=== PATIENT | male | born 1985 | race Caucasian/White ===

== ENCOUNTER 2017-02-03 10:54 | Emergency (ER) | payer OTHER ==
[~2017-02-03] VITALS: Ht 185.4 cm; Wt 100.0 kg
[~2017-02-03 10:54] MED LIST: BACTRIM DS1 TAB OR; CELEXA20 MG PO; DARVOCET N-100100 - OR; DOCUSATE CAL240 MG PO; FLEXERIL OR; LORTAB 10-325 M1 TAB PO; LORTAB 5 OR; NAPROSYN500 MG PO; PERCOCET 10/31 COMBO PO; ROBAXIN-750750 MG PO; [UNRECOGNIZED DRUG - OTHER]
[2017-02-03 11:42] LABS: HEMATOCRIT 42.4 % (39.0-50.0); HEMOGLOBIN 14.9 g/dl (14.0-18.0); IMMATURE GRANULOCYTES 0.2 % (0.0-1.0); MEAN CELL VOLUME 88.1 fL CALC (80.0-100.0); MEAN CORPUSCULAR HGB CONC 35.1 g/L CALC (32.0-36.0); NEUT# 4.8 thou/uL (1.82-7.42); RED BLOOD COUNT 4.81 mill/uL (4.70-6.10); RED CELL DISTRI WIDTH 12.1 % (11.5-15.5)
[2017-02-03 12:21] LABS: ALBUMIN 4.6 g/dL (3.2-5.0); ALKALINE PHOSPHATASE 79 u/l (38-126); ANION GAP 15 (6-22 (CALC)); BILIRUBIN, TOTAL 1.2 mg/dL (0.0-1.4); BUN 19 mg/dL (9-20); BUN/CREATININE RATIO 20 (12-20 (CALC)); CALCIUM 9.5 mg/dL (8.4-10.2); CARBON DIOXIDE 27 mmol/l (22-30); CHLORIDE 108 mmol/l (95-108); CREATININE 0.9 mg/dL (0.7-1.3); GFR > 60 ML/MIN (>=60 (CALC)); GFR FOR AFR.AMER. > 60 ML/MIN (>=60 (CALC)); GLUCOSE 99 mg/dL (75-110); POTASSIUM 4.6 mmol/l (3.5-5.1); SGOT/AST 14 u/l (17-59); SGPT/ALT 22 u/l (21-72); SODIUM 145 mmol/l (137-146); TOTAL PROTEIN 7.4 g/dL (6.3-8.2)
[2017-02-03] MEDS ORDERED: MOTRIN800 MG PO (13:36)
[2017-02-03 13:41] VITALS: BP 128/89
== END 2017-02-03 13:50 | disposition home or self-care (01) | DRG 914 ==
LOC: ED 10:54
PROVIDERS: Emergency Medicine
DX: S29.9XXA Unspecified injury of thorax, initial encounter (principal); S39.91XA Unspecified injury of abdomen, initial encounter; V49.59XA Passenger injured in collision with other motor vehicles in traffic accident, initial encounter; Y92.414 Local residential or business street as the place of occurrence of the external cause
CPT/HCPCS: Q9967

== ENCOUNTER 2017-11-08 04:27 | Emergency (ER) | payer SELFPAY ==
[~2017-11-08] VITALS: Ht 185.4 cm; Wt 82.0 kg
[~2017-11-08 04:27] MED LIST changes: +MOTRIN800 MG PO
[2017-11-08 04:32] VITALS: BP 136/91
[2017-11-08 05:15] LABS: IMMATURE GRANULOCYTES 0.3 % (0.0-5.0); MEAN CELL VOLUME 88.2 fL CALC (80.0-100.0); MEAN CORPUSCULAR HGB 31.4 pG CALC (26.0-32.0); MEAN CORPUSCULAR HGB CONC 35.6 g/L CALC (32.0-36.0); NEUT# 5.32 thou/uL (1.82-7.42); RED BLOOD COUNT 4.08 mill/uL (4.70-6.10); RED CELL DISTRI WIDTH 12.7 % (11.5-15.5)
[2017-11-08 05:17] LABS: URINE BILIRUBIN - DIPSTICK NEGATIVE (NEGATIVE); URINE BLOOD DIPSTICK NEGATIVE (NEGATIVE); URINE COLOR YELLOW; URINE GLUCOSE - DIPSTICK NEGATIVE (NEGATIVE); URINE KETONE NEGATIVE (NEGATIVE); URINE LEUK ESTERASE NEGATIVE (NEGATIVE); URINE NITRITE - DIPSTICK NEGATIVE (Negative); URINE PH 6.5 (4.5-8.0); URINE PROTEIN - DIPSTICK NEGATIVE (NEG-TRACE)
[2017-11-08 05:21] LABS: HEMOGLOBIN 12.8 g/dl (14.0-18.0)
[2017-11-08 05:22] LABS: BARBITURATES NEGATIVE (NEGATIVE); COCAINE NEGATIVE (NEGATIVE); METHADONE NEGATIVE (NEGATIVE); OXCYCODONE NEGATIVE (NEGATIVE); TETRAHYDROCANNABIONOL NEGATIVE (NEGATIVE); TRICYLIC ANTIDEPRESSANTS NEGATIVE (NEGATIVE)
[2017-11-08 05:23] LABS: URINE CLARITY CLEAR
[2017-11-08 05:33] LABS: ALBUMIN 3.7 g/dL (3.2-5.0); ALKALINE PHOSPHATASE 83 u/l (38-126); ANION GAP 13 (6-22 (CALC)); BILIRUBIN, TOTAL 1.1 mg/dL (0.0-1.4); BUN 24 mg/dL (9-20); BUN/CREATININE RATIO 26 (12-20 (CALC)); CARBON DIOXIDE 26 mmol/l (22-30); CHLORIDE 104 mmol/l (95-108); CREATININE 0.9 mg/dL (0.7-1.3); GFR > 60 ML/MIN (>=60 (CALC)); GFR FOR AFR.AMER. > 60 ML/MIN (>=60 (CALC)); POTASSIUM 3.9 mmol/l (3.5-5.1); SGPT/ALT 143 u/l (21-72); SODIUM 139 mmol/l (137-146); TOTAL PROTEIN 6.6 g/dL (6.3-8.2)
[2017-11-08 05:41] LABS: SGOT/AST 76 u/l (17-59)
== END 2017-11-08 06:28 | disposition left against medical advice (07) | DRG 103 ==
LOC: ED 04:27
PROVIDERS: Emergency Medicine
DX: R51 Headache (principal); F19.10 Other psychoactive substance abuse, uncomplicated; F17.210 Nicotine dependence, cigarettes, uncomplicated; Z91.19 Patient's noncompliance with other medical treatment and regimen

== ENCOUNTER 2017-12-30 00:30 | Observation (INO) | payer SELFPAY ==
[~2017-12-30] VITALS: Ht 185.4 cm; Wt 82.4 kg
--- NOTE | 2017-12-30 00:45 | NUR ---
TO ROOM VIA W/C
--- NOTE | 2017-12-30 01:16 | NUR ---
PT TO BR TO GET CLEANED UP.
--- NOTE | 2017-12-30 02:23 | NUR ---
IV STARTED AFTER 2ND SET OF BLOOD CULTURES. PT HAS MULTIPLE REQUESTS...PEN/PAPER/TOWELS/PHONE ETC. PT GIVEN SOCKS AND BLANKETS. ANTIBIOTICS INFUSING.
[2017-12-30 02:32] LABS: URINE BLOOD DIPSTICK NEGATIVE (NEGATIVE); URINE COLOR YELLOW; URINE GLUCOSE - DIPSTICK NEGATIVE (NEGATIVE); URINE KETONE TRACE mg/dL (NEGATIVE); URINE LEUK ESTERASE NEGATIVE (NEGATIVE); URINE NITRITE - DIPSTICK NEGATIVE (Negative); URINE PH 5.5 (4.5-8.0); URINE PROTEIN - DIPSTICK 30 mg/dL (NEG-TRACE); URINE SPECIFIC GRAVITY >=1.030
[2017-12-30 02:34] LABS: HEMATOCRIT 35.4 % (39.0-50.0); HEMOGLOBIN 12.8 g/dl (14.0-18.0); IMMATURE GRANULOCYTES 0.3 % (0.0-5.0); MEAN CELL VOLUME 87.6 fL CALC (80.0-100.0); MEAN CORPUSCULAR HGB 31.7 pG CALC (26.0-32.0); MEAN CORPUSCULAR HGB CONC 36.2 g/L CALC (32.0-36.0); NEUT# 6.01 thou/uL (1.82-7.42); RED BLOOD COUNT 4.04 mill/uL (4.70-6.10); RED CELL DISTRI WIDTH 12.5 % (11.5-15.5)
[2017-12-30 02:35] LABS: ALBUMIN 4.4 g/dL (3.2-5.0); ALKALINE PHOSPHATASE 74 u/l (38-126); ANION GAP 18 (6-22 (CALC)); BILIRUBIN, TOTAL 2.3 mg/dL (0.0-1.4); BUN 25 mg/dL (9-20); BUN/CREATININE RATIO 30 (12-20 (CALC)); CARBON DIOXIDE 24 mmol/l (22-30); CHLORIDE 99 mmol/l (95-108); CREATININE 0.9 mg/dL (0.7-1.3); GFR > 60 ML/MIN (>=60 (CALC)); GFR FOR AFR.AMER. > 60 ML/MIN (>=60 (CALC)); POTASSIUM 4.1 mmol/l (3.5-5.1); SGOT/AST 98 u/l (17-59); SODIUM 136 mmol/l (137-146); TOTAL PROTEIN 7.9 g/dL (6.3-8.2)
[2017-12-30 02:44] LABS: URINE BILIRUBIN - DIPSTICK SMALL (NEGATIVE); URINE CLARITY CLEAR
[2017-12-30 02:45] LABS: BARBITURATES NEGATIVE (NEGATIVE); COCAINE NEGATIVE (NEGATIVE); METHADONE NEGATIVE (NEGATIVE); OXCYCODONE NEGATIVE (NEGATIVE); TETRAHYDROCANNABIONOL POSITIVE (NEGATIVE); TRICYLIC ANTIDEPRESSANTS NEGATIVE (NEGATIVE)
[2017-12-30 02:54] LABS: URINE MUCUS FEW hpf (NONE-FEW); URINE SQUAMOUS EPITHELIAL CELL FEW EPI/hpf (0-FEW)
--- NOTE | 2017-12-30 02:54 | NUR ---
ANTIBIOTICS COMPLETED. PT UP TO BR. THEN TO DESK TO USE PHONE AGAIN.
--- NOTE | 2017-12-30 03:09 | NUR ---
REPORT TO SERVANDO GRANADOS/MS
--- NOTE | 2017-12-30 03:20 | NUR ---
PT BROKEN OUT IN HIVES...C/O PAIN IN FEET. NOTIFIED.
--- NOTE | 2017-12-30 03:35 | NUR ---
PT GIVEN MEDS FOR PAIN AND REACTION. FRIEND CALLED BACK. PT TO FLOOR VIA W/C. KRISTI.
--- NOTE | 2017-12-30 03:37 | NUR ---
PT ARRIVED TO UNIT VIA WHEELCHAIR WITH ER STAFF; AMBULATED TO BATHROOM TO VOID AND TO BED; ALERT AND ORIENTED. C/O THROBBING PAIN TO LEFT FOOT. APPARENT REDNESS AND HEALING WOUNDS TO BLE. RASH NOTED TO FACE AND UPPER CHEST; PT DENIES ANY RESPIRTORY ISSUES. RESPIRATIONS EVEN AND UNLABORED ON ROOM AIR. ASSESSMENT COMPLETED UPON ARRIVAL. PHOTOS TAKEN OF LEGS AND PLACED IN CHART. PT STATES THAT HE HAS BEEN LIVING OUTSIDE SINCE HE WAS RELEASED FROM [facility] ONE WEEK AGO. ORIENTED TO ROOM AND CALL LIGHT SYSTEM. PLAN OF CARE DISCUSSED. PT ENCOURAGED TO VERBALIZE CONCERNS. STATES UNDERSTANDING. SAFETY MEASURES IN PLACE. CALL LIGHT WITHIN REACH.
--- NOTE | 2017-12-30 04:43 | NUR ---
VISITOR NOW AT BEDSIDE. PT REQUESTED PAIN MEDICATION FOR THROBBING TO LEFT FOOT; TYLENOL ORDER RECEIVED FROM DR. KEARNS. PT SET UP FOR SHOWER; INDEPENDENT IN ROOM. PT REPEATEDLY STATING THAT HE IS EMBARASSED ABOUT HIS LEGS; ENCOURAGED TO VERBALIZE FEELINGS.
[2017-12-30 05:26] VITALS: BP 135/80
--- NOTE | 2017-12-30 05:39 | NUR ---
PT DECLINED TYELNOL; STATING THAT HIS PAIN IS NOW A 3/10. CURRENLTY LIP IS BLEEDING, PT STATES THAT HE CUT IT, BUT DID NOT EXPRESS HOW. VISITOR REMAINS AT BEDSIDE. NO OTHER REQUESTS AT THIS TIME.
--- NOTE | 2017-12-30 07:15 | NUR ---
PT REPORT RECIEVED FROM SERVANDO GRANADOS. PT SITTING UPRIGHT IN BED NO S/S OF DISTRESS. PT DENIES ANY NEEDS AT THIS TIME. PT SPOUSE LEAVING ROOM. CALL LIGHT IN REACH. WILL CONTINUE TO MONITOR.
--- NOTE | 2017-12-30 08:15 | NUR ---
PT ASSESSMENT COMPLETE. PT A/O X3. SPEECH IS CLAER PERRLA. PUPILS SIZE 5MM. RESP EVEN AND UNLABORED. LUNG SOUNDS CLEAR. ABDOMEN ROUND, SOFT. LAST BM 12/30/17. BOWEL SOUNDS ACTIVE X4. STRONG RADIAL AND PEDAL PULSES. HEELING WOUNDS TO BLE. PT HAS LT FOOT CELLULITIS. REDNESS NOTED. WARM TO TOUCH. ONE OPEN BLISTER IN BETWEEN BIG TOE AND PICKY TOE ON BILATERAL FEET. NO DRAIANAGE. PHOTOS IN CHART. OPEN BLISTER TO LT AND RT HEEL. NO DRAINAGE. SLIGHT REDNESS. PT EXPRESSES CONCERN AND SOME ANXIETY R/T CELLULITIS ON LT FOOT. DISCUSSED SYMPTOMS AND ALL QUESTIONS REGARDING CELLLULITIS ANSWERED. ELEVATION ENCOURAGED. PT STATES UNDERSTANDING. #20 RAC SL. SITE APPEARS HEALTHY. PLAN OF CARE DISCUSSED. CALL LIGHT IN REACH. WILL CONTINUE TO MONITOR.
[2017-12-30 08:23] VITALS: BP 130/79
--- NOTE | 2017-12-30 08:24 | NUR ---
I spoke to Fabrice from Dr. Montgomery office @[phone] to [address] Dr[address] Cazares will be the physician to see the patient.
--- NOTE | 2017-12-30 08:31 | NUR ---
PT STATES THROBBING LT FOOT PAIN. 6 OUT OF 10 ON PAIN SCALE. PT MEDICATED W/ TWO 325MG TYLENOL TABLETS. ELEVATION ENCOURAGED. ICE APPLIED. CALL LIGHT IN REACH. WILL CONTINUE TO MONITOR.
--- NOTE | 2017-12-30 09:48 | NUR ---
PT STATES LT FOOT PAIN HAS DECREASED TO A 1 OUT OF 10 ON PAIN SCALE. RELAXATION TECHNIQUES REINFORCED. ENCOURAGED ELEVATION. PT DENIES ANY FURTHER NEEDS. SPOUSE AT BEDSIDE. CALL LIGHT IN REACH. WILL CONTINUE TO MONITOR.
[2017-12-30] MEDS ORDERED: BACTRIM DS1 TAB PO (12:10)
--- NOTE | 2017-12-30 12:40 | NUR ---
PT SITTING IN BEDSIDE CHAIR WATCHING TELEVISION. NO S/S OF DISTRESS NOTED. PT DENIES AND PAIN OR NEEDS AT THIS TIME. CALL LIGHT IN REACH. WILL CONTINUE TO MONITOR.
--- NOTE | 2017-12-30 12:54 | NUR ---
XRAY AT BEDSIDE
--- NOTE | 2017-12-30 14:00 | NUR ---
PT RESTING AT BEDSIDE;BLE WOUNDS CLEANSED WITH HIBICLENS,SILVADENE APPLIED AND WOUND DRESSED WITH NON-ADHESIVE,4X4,KERLIX AND PAPER TAPE.PT REPORTS NEW HIVES TO BODY AND VIRIDIANA WATERMAN NOTIFIED;WILL CONTINUE TO MONITOR
--- NOTE | 2017-12-30 14:05 | NUR ---
ROSMERY LITTLE,ANRP AT BEDSIDE
--- NOTE | 2017-12-30 15:05 | NUR ---
#20G TO RAC FOUND OCCLUDED;IV SITE REMOVED WITH CATHETER INTACT;NEW #22G STARTED TO LEFT FOREARM ON SECOND ATTEMPT BY KATE STUBBS,PT TOLERATED WELL;PT ALSO MEDICATED WITH 125MG OF SOLUMEDROL AND 25MG OF BENADRYL IVP,WILL CONTINUE TO MONITOR TO MONITOR
--- NOTE | 2017-12-30 15:31 | NUR ---
PT WALKING DOWN THE HALLWAY WITH BACKPACK REQUESTING TO GO DOWNSTAIRS TO SMOKE,PT MADE AWARE THAT A MD ORDER IS REQUIRED TO HAVE GO DOWNSTAIRS;ROSMERY LITTLE,ANRP MADE AWARE AND ORDER FOR NICOTINE PATCH RECEIVED;PT AWARE OF WAIT TIME FOR PHARMACY PROFILE AND VERBALIZES UNDERSTANDING BUT ALSO STATES "ILL TAKE IT BUT I DONT NEED IT";IV SITE TO RAC REMOVED WITH CATHETER INTACT;WILL CONTINUE TO MONITOR
--- NOTE | 2017-12-30 15:45 | NUR ---
PT AT [facility] STATING "ARE YOU MESSING WITH ME? I CALLED THE HALFWAY AND I HEARD YOUR VOICE,ARE YOU MESSING WITH MY CALL?"; I INFORMED PT THAT I AM NOT ANSWERING PHONE CALLS FROM THE HALFWAY. PT REPORTS THAT HE IS GOING DOWNSTAIRS TO SMOKE AND THEN WILL COME BACK UP TO HIS ROOM.ANRP DISCUSSING WITH PT THE RISKS OF GOING DOWNSTAIRS TO SMOKE AND THAT HE CAN SIGN AMA IF NEEDED OR CAN WALK AROUND THE HALLWAYS.
--- NOTE | 2017-12-30 15:55 | NUR ---
ALL DISCHARGE INFORMATION DISCUSSED WITH PT AND PRESCRIPTIONS PROVIDED;PT STATES "THAT NURSE (ROSMERY LITTLE,[facility]) IS TRYING TO COVER HER ASS. MAYBE SOMEDAY YOU COULD HAVE SOME SYMPATHY AND HELP SOMEONE.IM NOT A DRUG ADDICT".PT DENIES ANY ADDITIONAL NEEDS AT THIS TIME AND BEGINS TO AMBULATE DOWN HALLWAY. REFUSES WHEELCHAIR.
[2017-12-30] MEDS ORDERED: MEDDOSEPAK PO (15:57)
--- NOTE | 2017-12-30 16:00 | NUR ---
Discharge instructions given. Patient verbalizes understanding of same. Discharged in fair condition via Ambulatory to Home with *Other. All belongings sent with pt. Pt ambulated with a steady gait for discharge.
--- NOTE | 2017-12-30 16:20 | NUR ---
AFTER CLEANING THE PATIENTS ROOM ANGIA,STORES CLERK FOUND PATIENT BELONGINGS WHICH INCLUDED A SYRINGE,DRUG PARAPHERNALIA,AND TOURNIQUET. [facility] TO BE NOTIFIED.
--- NOTE | 2017-12-30 16:32 | NUR ---
[facility] OFF[facility] NOTIFIED BY MACHINE DYER CHRISTINA BRADSHAW.
== END 2017-12-30 16:00 | disposition home or self-care (01) | DRG 603 ==
LOC: ED 00:30 → ED-I 01:36 → ED 03:08 → MS2 03:09
PROVIDERS: Emergency Medicine; ADMIT Internal Medicine; ATTEND Internal Medicine
DX: L03.116 Cellulitis of left lower limb (principal); S91.302A Unspecified open wound, left foot, initial encounter; F15.10 Other stimulant abuse, uncomplicated; L27.1 Localized skin eruption due to drugs and medicaments taken internally; T36.1X5A Adverse effect of cephalosporins and other beta-lactam antibiotics, initial encounter; R23.8 Other skin changes; F17.210 Nicotine dependence, cigarettes, uncomplicated; X58.XXXA Exposure to other specified factors, initial encounter; Z59.0 Homelessness
CPT/HCPCS: G0378

== ENCOUNTER 2018-03-24 02:32 | Emergency (ER) | payer SELFPAY ==
[~2018-03-24] VITALS: Ht 185.4 cm; Wt 84.0 kg
[~2018-03-24 02:32] MED LIST changes: +BACTRIM DS1 TAB PO; +MEDDOSEPAK PO
[2018-03-24] MEDS ORDERED: CEPHALEXIN500 M1 PO (03:09)
[2018-03-24] MEDS ORDERED: LORTAB 1010 MG PO (03:09)
[2018-03-24] MEDS ORDERED: BACTRIM DS1 TAB PO (03:09)
[2018-03-24 03:18] VITALS: BP 139/96
== END 2018-03-24 03:27 | disposition home or self-care (01) | DRG 603 ==
LOC: ED 02:32
PROC: 0H94XZZ Drainage of Neck Skin, External Approach (ICD-10-PCS; principal; 2018-03-24)
DX: L02.11 Cutaneous abscess of neck (principal); F17.210 Nicotine dependence, cigarettes, uncomplicated; B95.61 Methicillin susceptible Staphylococcus aureus infection as the cause of diseases classified elsewhere

== ENCOUNTER 2018-04-14 10:25 | Emergency (ER) | payer SELFPAY ==
[~2018-04-14] VITALS: Ht 185.4 cm; Wt 60.0 kg
[~2018-04-14 10:25] MED LIST changes: +CEPHALEXIN500 M1 PO; +LORTAB 1010 MG PO
[2018-04-14] MEDS ORDERED: ZITHROMAX250 MG PO (11:24)
[2018-04-14] MEDS ORDERED: CORTISPORIN OTI10 M2 AS (11:24)
[2018-04-14] MEDS ORDERED: NO HOME MEDS (11:28)
[2018-04-14 11:53] VITALS: BP 157/81
== END 2018-04-14 11:53 | disposition home or self-care (01) | DRG 153 ==
LOC: ED 10:25
DX: H66.92 Otitis media, unspecified, left ear (principal); H60.92 Unspecified otitis externa, left ear; F17.200 Nicotine dependence, unspecified, uncomplicated

== ENCOUNTER 2018-06-22 05:57 | Emergency (ER) | payer SELFPAY ==
[~2018-06-22] VITALS: Ht 185.4 cm; Wt 86.3 kg
[~2018-06-22 05:57] MED LIST changes: +CORTISPORIN OTI10 M2 AS; +NO HOME MEDS; +ZITHROMAX250 MG PO
[2018-06-22] MEDS ORDERED: CELEXA20 MG PO (06:17)
[2018-06-22 07:12] LABS: HEMATOCRIT 36.3 % (39.0-50.0); HEMOGLOBIN 12.6 g/dl (14.0-18.0); IMMATURE GRANULOCYTES 0.3 % (0.0-5.0); MEAN CELL VOLUME 88.5 fL CALC (80.0-100.0); MEAN CORPUSCULAR HGB 30.7 pG CALC (26.0-32.0); MEAN CORPUSCULAR HGB CONC 34.7 g/L CALC (32.0-36.0); NEUT# 3.67 thou/uL (1.82-7.42); RED BLOOD COUNT 4.1 mill/uL (4.70-6.10); RED CELL DISTRI WIDTH 12.8 % (11.5-15.5)
[2018-06-22 07:19] LABS: URINE BLOOD DIPSTICK NEGATIVE (NEGATIVE); URINE COLOR YELLOW; URINE GLUCOSE - DIPSTICK NEGATIVE (NEGATIVE); URINE KETONE 40 mg/dL (NEGATIVE); URINE LEUK ESTERASE NEGATIVE (NEGATIVE); URINE NITRITE - DIPSTICK NEGATIVE (Negative); URINE PH 5.5 (4.5-8.0); URINE PROTEIN - DIPSTICK NEGATIVE (NEG-TRACE); URINE SPECIFIC GRAVITY >=1.030
[2018-06-22 07:22] LABS: COCAINE NEGATIVE (NEGATIVE)
[2018-06-22 07:23] LABS: BARBITURATES NEGATIVE (NEGATIVE); METHADONE NEGATIVE (NEGATIVE); OXCYCODONE NEGATIVE (NEGATIVE); TETRAHYDROCANNABIONOL NEGATIVE (NEGATIVE); TRICYLIC ANTIDEPRESSANTS NEGATIVE (NEGATIVE)
[2018-06-22 07:30] LABS: ALBUMIN 4.4 g/dL (3.2-5.0); ALKALINE PHOSPHATASE 77 u/l (38-126); ANION GAP 15 (6-22 (CALC)); BILIRUBIN, TOTAL 1.5 mg/dL (0.0-1.4); BUN 30 mg/dL (9-20); BUN/CREATININE RATIO 38 (12-20 (CALC)); CARBON DIOXIDE 23 mmol/l (22-30); CHLORIDE 106 mmol/l (95-108); CREATININE 0.8 mg/dL (0.7-1.3); GFR > 60 ML/MIN (>=60 (CALC)); GFR FOR AFR.AMER. > 60 ML/MIN (>=60 (CALC)); POTASSIUM 3.9 mmol/l (3.5-5.1); SGOT/AST 71 u/l (17-59); SODIUM 140 mmol/l (137-146); TOTAL PROTEIN 7.2 g/dL (6.3-8.2)
[2018-06-22 07:33] LABS: URINE BILIRUBIN - DIPSTICK NEGATIVE (NEGATIVE)
[2018-06-22] MEDS ORDERED: NEOMYCIN/POLYMY1 SOL AS (07:38)
[2018-06-22 07:52] VITALS: BP 149/92
== END 2018-06-22 08:00 | disposition home or self-care (01) | DRG 155 ==
LOC: ED 05:57
PROVIDERS: Emergency Medicine
DX: H60.92 Unspecified otitis externa, left ear (principal); R44.0 Auditory hallucinations; F17.210 Nicotine dependence, cigarettes, uncomplicated

== ENCOUNTER 2019-08-26 14:25 | Emergency (ER) | payer SELFPAY ==
[~2019-08-26 14:25] MED LIST changes: +NEOMYCIN/POLYMY1 SOL AS
[2019-08-26 15:00] LABS: HEMOGLOBIN 13.2 g/dl (14.0-18.0); IMMATURE GRANULOCYTES 0.2 % (0.0-5.0); MEAN CORPUSCULAR HGB 27.8 pG CALC (26.0-32.0); MEAN CORPUSCULAR HGB CONC 33.8 g/dL CAL (32.0-36.0); NEUT# 7.94 thou/uL (1.82-7.42); RED BLOOD COUNT 4.74 mill/uL (4.70-6.10); RED CELL DISTRI WIDTH 12.9 % (11.5-15.5)
[2019-08-26 15:24] LABS: MEAN CELL VOLUME 82.3 fL CALC (80.0-100.0)
[2019-08-26 15:36] LABS: ALBUMIN 3.9 g/dL (3.2-5.0); BUN 17 mg/dL (9-20); BUN/CREATININE RATIO 22 (12-20 (CALC)); CREATININE 0.8 mg/dL (0.7-1.3); GFR > 60 ML/MIN (>=60 (CALC)); GFR FOR AFR.AMER. > 60 ML/MIN (>=60 (CALC)); POTASSIUM 4.4 mmol/l (3.5-5.1); SGOT/AST 87 u/l (17-59); TOTAL PROTEIN 7.7 g/dL (6.3-8.2)
[2019-08-26 15:48] LABS: ALKALINE PHOSPHATASE 485 u/l (38-126); ANION GAP 14 (6-22 (CALC)); BILIRUBIN, TOTAL 6.9 mg/dL (0.0-1.4); CARBON DIOXIDE 28 mmol/l (22-30); CHLORIDE 91 mmol/l (95-108); SODIUM 129 mmol/l (137-146)
[2019-08-26 16:07] VITALS: BP 128/75
== END 2019-08-26 15:56 | disposition short-term general hospital (02) | DRG 558 ==
LOC: ED 14:25
PROVIDERS: Emergency Medicine
DX: M79.A12 Nontraumatic compartment syndrome of left upper extremity (principal); L03.114 Cellulitis of left upper limb; F17.210 Nicotine dependence, cigarettes, uncomplicated

== ENCOUNTER 2019-10-06 16:42 | Emergency (ER) | payer SELFPAY ==
[~2019-10-06] VITALS: Ht 185.4 cm; Wt 77.6 kg
[2019-10-06 17:02] LABS: HEMATOCRIT 40.9 % (39.0-50.0); HEMOGLOBIN 13.4 g/dl (14.0-18.0); IMMATURE GRANULOCYTES 0.1 % (0.0-5.0); MEAN CELL VOLUME 85.9 fL CALC (80.0-100.0); MEAN CORPUSCULAR HGB 28.2 pG CALC (26.0-32.0); MEAN CORPUSCULAR HGB CONC 32.8 g/dL CAL (32.0-36.0); NEUT# 5.44 thou/uL (1.82-7.42); RED BLOOD COUNT 4.76 mill/uL (4.70-6.10); RED CELL DISTRI WIDTH 13.7 % (11.5-15.5)
[2019-10-06 17:23] LABS: ALKALINE PHOSPHATASE 116 u/l (38-126); BILIRUBIN, TOTAL 1.4 mg/dL (0.0-1.4); BUN 23 mg/dL (9-20); BUN/CREATININE RATIO 15 (12-20 (CALC)); CARBON DIOXIDE 26 mmol/l (22-30); CHLORIDE 106 mmol/l (95-108); CREATININE 1.5 mg/dL (0.7-1.3); ETHYL ALCOHOL 0 mg/dl (0-30); GFR 54 ML/MIN (>=60 (CALC)); GFR FOR AFR.AMER. > 60 ML/MIN (>=60 (CALC)); POTASSIUM 4.2 mmol/l (3.5-5.1); SGOT/AST 36 u/l (17-59); TOTAL PROTEIN 8.6 g/dL (6.3-8.2)
[2019-10-06 17:37] LABS: ALBUMIN 5.2 g/dL (3.2-5.0); ANION GAP 13 (6-22 (CALC)); SODIUM 141 mmol/l (137-146)
[2019-10-06 21:00] VITALS: BP 110/71
== END 2019-10-06 20:52 | disposition home or self-care (01) | DRG 605 ==
LOC: ED 16:42
PROVIDERS: Student in an Organized Health Care Education/Training Program
DX: S00.81XA Abrasion of other part of head, initial encounter (principal); N17.9 Acute kidney failure, unspecified; E86.0 Dehydration; F15.10 Other stimulant abuse, uncomplicated; F17.210 Nicotine dependence, cigarettes, uncomplicated; X58.XXXA Exposure to other specified factors, initial encounter
CPT/HCPCS: J2060

== ENCOUNTER 2019-10-15 12:46 | Emergency (ER) | payer SELFPAY ==
[~2019-10-15] VITALS: Ht 185.4 cm; Wt 85.0 kg
[2019-10-15 13:40] VITALS: BP 182/88
[2019-10-15 13:45] LABS: HEMATOCRIT 35.6 % (39.0-50.0); HEMOGLOBIN 11.5 g/dl (14.0-18.0); IMMATURE GRANULOCYTES 0.4 % (0.0-5.0); MEAN CELL VOLUME 87.5 fL CALC (80.0-100.0); MEAN CORPUSCULAR HGB 28.3 pG CALC (26.0-32.0); MEAN CORPUSCULAR HGB CONC 32.3 g/dL CAL (32.0-36.0); NEUT# 5.57 thou/uL (1.82-7.42); RED BLOOD COUNT 4.07 mill/uL (4.70-6.10); RED CELL DISTRI WIDTH 14.1 % (11.5-15.5)
[2019-10-15 14:17] LABS: ALKALINE PHOSPHATASE 84 u/l (38-126); BUN 17 mg/dL (9-20); BUN/CREATININE RATIO 26 (12-20 (CALC)); CARBON DIOXIDE 25 mmol/l (22-30); CHLORIDE 101 mmol/l (95-108); CREATININE 0.6 mg/dL (0.7-1.3); GFR > 60 ML/MIN (>=60 (CALC)); GFR FOR AFR.AMER. > 60 ML/MIN (>=60 (CALC)); POTASSIUM 3.6 mmol/l (3.5-5.1); SGOT/AST 26 u/l (17-59)
[2019-10-15 14:18] LABS: ALBUMIN 3.7 g/dL (3.2-5.0); ANION GAP 10 (6-22 (CALC)); SODIUM 132 mmol/l (137-146); TOTAL PROTEIN 6.7 g/dL (6.3-8.2)
== END 2019-10-15 13:42 | disposition left against medical advice (07) | DRG 125 ==
LOC: ED 12:46
DX: H00.035 Abscess of left lower eyelid (principal); H00.034 Abscess of left upper eyelid; F17.200 Nicotine dependence, unspecified, uncomplicated; Z91.19 Patient's noncompliance with other medical treatment and regimen

== ENCOUNTER 2019-12-27 14:07 | Emergency (ER) | payer OTHER ==
[~2019-12-27] VITALS: Ht 185.4 cm; Wt 84.0 kg
[2019-12-27] MEDS ORDERED: ZYPREXA PO (15:20)
[2019-12-27] MEDS ORDERED: CELEXA20 MG PO (15:20)
[2019-12-27] MEDS ORDERED: PEPCID20 MG PO (15:21)
[2019-12-27 15:32] LABS: HEMATOCRIT 35.4 % (39.0-50.0); HEMOGLOBIN 11.9 g/dl (14.0-18.0); IMMATURE GRANULOCYTES 0.3 % (0.0-5.0); MEAN CELL VOLUME 87.4 fL CALC (80.0-100.0); MEAN CORPUSCULAR HGB 29.4 pG CALC (26.0-32.0); MEAN CORPUSCULAR HGB CONC 33.6 g/dL CAL (32.0-36.0); NEUT# 4.03 thou/uL (1.82-7.42); RED BLOOD COUNT 4.05 mill/uL (4.70-6.10); RED CELL DISTRI WIDTH 13.2 % (11.5-15.5)
[2019-12-27 15:52] LABS: ALBUMIN 4.1 g/dL (3.2-5.0); ALKALINE PHOSPHATASE 69 u/l (38-126); BUN 11 mg/dL (9-20); BUN/CREATININE RATIO 15 (12-20 (CALC)); CARBON DIOXIDE 29 mmol/l (22-30); CHLORIDE 105 mmol/l (95-108); CREATININE 0.7 mg/dL (0.7-1.3); GFR > 60 ML/MIN (>=60 (CALC)); GFR FOR AFR.AMER. > 60 ML/MIN (>=60 (CALC)); SGOT/AST 41 u/l (17-59); TOTAL PROTEIN 6.9 g/dL (6.3-8.2)
[2019-12-27 15:55] LABS: ANION GAP 10 (6-22 (CALC)); BILIRUBIN, TOTAL 0.5 mg/dL (0.0-1.4); SODIUM 140 mmol/l (137-146)
[2019-12-27 16:02] LABS: ACT PARTIAL THROMBO TIME 19.4 SECONDS (20.0-32.5); INTERNATIONAL NORMALIZED RATIO 1.1 RATIO (0.7-1.3); PROTHROMBIN TIME 11.2 SECONDS (9.0-12.5)
[2019-12-27 18:41] VITALS: BP 126/79
== END 2019-12-27 18:41 | DRG 999 ==
LOC: ED 14:07
PROVIDERS: Student in an Organized Health Care Education/Training Program
DX: S02.32XA Fracture of orbital floor, left side, initial encounter for closed fracture (principal); S02.19XA Other fracture of base of skull, initial encounter for closed fracture; F17.200 Nicotine dependence, unspecified, uncomplicated; W18.39XA Other fall on same level, initial encounter; Y92.149 Unspecified place in prison as the place of occurrence of the external cause; Z20.828 Contact with and (suspected) exposure to other viral communicable diseases